=== PATIENT | male | born 1960 | race Caucasian/White ===

== ENCOUNTER 2018-10-12 10:38 | Day surgery (SDC) | payer MEDICARE ==
[2018-10-12] VITALS (11 sets, daily range): BP systolic 104–155; BP diastolic 65–96; PULSE 16–74; TEMP 97–98
[~2018-10-12] VITALS: Ht 180.3 cm; Wt 96.4 kg
[2018-10-12] MEDS ORDERED: CRESTOR 10MG10 MG PO (12:03)
[2018-10-12] MEDS ORDERED: NORVASC 10MG10 MG PO (12:03)
[2018-10-12] MEDS ORDERED: AVAPRO300 M1 PO (12:04)
[2018-10-12] MEDS ORDERED: COREG 25MG25 MG/TAB PO (12:04)
[2018-10-12] MEDS ORDERED: LEXAPRO 10MG10 MG PO (12:04)
[2018-10-12] MEDS ORDERED: ALDACTONE 25MG25 M1 PO (12:05)
[2018-10-12] MEDS ORDERED: NORCO 325 MG-51 TAB PO (12:05)
[2018-10-12] MEDS ORDERED: NEURONTIN300 MG/CAP PO (12:05)
[2018-10-12] MEDS ORDERED: ASPIRIN E.C. 8181 MG PO (12:06)
[2018-10-12] MEDS ORDERED: NITROSTAT0.4 MG/TAB SL (12:07)
--- NOTE | 2018-10-12 16:00 | NUR ---
PT TO ROOM 322 @ 1505 WITH REPORT FROM LINDSAY GOVEA PACU. PT IS A/O X3,LUNGS COARSE THROUGHOUT. BOWEL SOUNDS HYPO. 4 LAP SITES CDI COVERED WITH BANDAIDS, IV TO PUMP PER ORDERS.
--- NOTE | 2018-10-12 18:43 | NUR ---
REPORT TO FAINA GOVEA.
--- NOTE | 2018-10-12 20:30 | NUR ---
Initial shift assessment done- Up to bathroom on own- voiding well, Up for a short walk in [place]- states having some abd pain 01/02-will give Mabel as ordered, 4 lap sites to abd/bandaids intact with very scant old drainage, IV of D5NS at 83cc/hr to L/FA,
[2018-10-13] VITALS: BP 98/63; PULSE 61; TEMP 98.5
[2018-10-13 04:00] VITALS: BP 92/53; PULSE 66; TEMP 99.1
--- NOTE | 2018-10-13 05:57 | NUR ---
Quiet night-- Up to bathroom, voiding without problems, Lap sites clean, dry and intact. Taking [place] for pain-- Up in [place] walking last night.
--- NOTE | 2018-10-13 07:23 | NUR ---
Pt AAOx4 resting in bed complaining of no acute pain, "just sore from the incisions". Call light in reach, no complaints from pt at this time
[2018-10-13 07:33] VITALS: BP 104/70; PULSE 58; TEMP 97.3
[2018-10-13 12:05] VITALS: BP 112/75; PULSE 59; TEMP 97.2
--- NOTE | 2018-10-13 15:46 | NUR ---
SW student met with the patient and brother, Chu, to discuss discharge planning. The patient lives in [place] and obtains his prescriptions from [facility]. The patient reports he does not use any kind of DME except for a nebulizer when needed. The patient plans to DC home. No additional needs at this time.
[2018-10-13 17:14] VITALS: BP 100/62; PULSE 62; TEMP 97.1
== END 2018-10-13 18:20 | disposition home or self-care (01) ==
LOC: SDCO 10:38 → SURG 15:10 → SDCO 10-13 18:20
DX: K80.12 Calculus of gallbladder with acute and chronic cholecystitis without obstruction (principal); I25.10 Atherosclerotic heart disease of native coronary artery without angina pectoris; I10 Essential (primary) hypertension; I25.2 Old myocardial infarction; B18.2 Chronic viral hepatitis C; G43.909 Migraine, unspecified, not intractable, without status migrainosus; M19.90 Unspecified osteoarthritis, unspecified site; F32.9 Major depressive disorder, single episode, unspecified; F41.9 Anxiety disorder, unspecified; Z95.1 Presence of aortocoronary bypass graft; Z79.82 Long term (current) use of aspirin; Z86.73 Personal history of transient ischemic attack (TIA), and cerebral infarction without residual deficits; Z82.5 Family history of asthma and other chronic lower respiratory diseases
CPT/HCPCS: OP; A9284; J0690; J1885; J2250; J2405; J2704; J3010; J7042; J7120

== ENCOUNTER → 2019-05-03 | Outpatient (CLI) | payer MEDICARE ==
[2019-05-03] VITALS (11 sets, daily range): BP systolic 107–127; BP diastolic 67–96; PULSE 53–66
[~2019-05-03] VITALS: Ht 180.3 cm; Wt 94.5 kg
[~2019-05-03] MED LIST: ALDACTONE 25MG25 M1 PO; ASPIRIN E.C. 8181 MG PO; AVAPRO300 M1 PO; BENICAR40 MG PO; COREG 25MG25 MG/TAB PO; CRESTOR 10MG10 MG PO; LEXAPRO 10MG10 MG PO; NEURONTIN300 MG/CAP PO; NITROSTAT0.4 MG/TAB SL; NORCO 325 MG-51 TAB PO; NORVASC 10MG10 MG PO; OMEGA-3 1000 MG1 CAP PO; PROTONIX20 MG PO
[2019-05-03 10:50] LABS: INR 1.1 (0.8-3.0); PROTHROMBIN TIME 12.3 SECONDS (9.7-12.8)
--- NOTE | 2019-05-03 11:07 | NUR ---
PT WAS TAKEN TO CT ROOM, ASSISTED ONTO CT TABLE. MONITORING EQUIPMENT PLACED. IMAGES TAKEN AND SENT.
--- NOTE | 2019-05-03 11:20 | NUR ---
PT GIVEN 1 MG VERSED AND 25 MCG FENTANYL IVSP
--- NOTE | 2019-05-03 11:27 | NUR ---
PROCEDURE COMPLETED. PRESSURE HELD FOR 5 MINUTES TO SITE. PT DENIES PAIN. MOINITORING EQUIPMENT REMOVED. PT ASSISTED TO WHEELCHAIR. TAKEN TO RAD HOLDING
== END ==
LOC: COL.RAD 09:52
PROVIDERS: Internal Medicine Gastroenterology
DX: B18.2 Chronic viral hepatitis C (principal); R94.5 Abnormal results of liver function studies; R19.7 Diarrhea, unspecified; R10.9 Unspecified abdominal pain
CPT/HCPCS: J2250; J3010

== ENCOUNTER 2022-01-12 07:12 | Day surgery (SDC) | payer MEDICARE, MEDICAID ==
[~2022-01-12] VITALS: Ht 180.3 cm; Wt 87.4 kg
[2022-01-12 10:47] VITALS: BP 129/75; PULSE 56; TEMP 97.8
--- NOTE | 2022-01-12 11:12 | NUR ---
and LEILA have spoken with the PT.
--- NOTE | 2022-01-12 11:19 | NUR ---
PT ambulated independent to bathroom to void. Then back to bed. Side rails x2 call ardon within reach
--- NOTE | 2022-01-12 11:24 | NUR ---
PT was taken by Benjamin to the PACU to recieve a block.
--- NOTE | 2022-01-12 14:23 | NUR ---
Sheila was brought into the PT's private bay, #8
[2022-01-12 14:53] VITALS: BP 121/88; PULSE 49; TEMP 97.7
--- NOTE | 2022-01-12 15:01 | NUR ---
1453 - PT arrives from OR escorted by CEMENT SPRAYER HELPER and OR, RN. Monitors applied and vitals obtained. PT is drowsy but oriented. Sheila is present in the room. PT denies pain and nausea. NO vomiting. PT is tolerating water without difficulty. PT is wearing a sling to affected arm; graft site is dry and intact. Bulky dressing to R forearm is dry and intact as well; axillary dressing is without drainage. PT requested a warm muffin. PT oriented to room and call ardon, within reach. PT expresssed desire to be discharged. Verbal room report obtained from sources. spoke with Sheila. Side rails x2
[2022-01-12] MEDS ORDERED: MOTRIN 600600 MG/TAB PO (15:12)
[2022-01-12] MEDS ORDERED: NORCO 325 MG-51 TAB PO (15:12)
[2022-01-12 15:23] VITALS: BP 117/80; PULSE 51
--- NOTE | 2022-01-12 15:36 | NUR ---
1523 - VSS. IV discontinued. Catheter tip intact. Pressure bandage applied. NO redness or swelling noted. DC instructions and educational material reviewed with the PT, who verbalized understanding and signed the realted paperwork. Questions answered to PT satisfaction. PT assisted changing into personal clothes by is , Marge. Call ardon remains within reach. 1540 - PT dismissed [facility] [place] to the PT entrence by Sanket GOVEA. PT's has DC packet in hand and the PT personal belongings. PT transferred into the care of Sheila who is present to drive private car.
== END 2022-01-12 15:40 | disposition home or self-care (01) ==
LOC: SDCO 07:12
DX: C43.61 Malignant melanoma of right upper limb, including shoulder (principal); F17.210 Nicotine dependence, cigarettes, uncomplicated; Z28.310 Unvaccinated for COVID-19; Z28.39 Other underimmunization status; Z79.82 Long term (current) use of aspirin; Z95.1 Presence of aortocoronary bypass graft
CPT/HCPCS: A9520; J1100; J2250; J2704; J2795; J3010; J7120